=== PATIENT | male | born 1995 ===

== ENCOUNTER 2016-09-24 13:53 | Emergency (ER) | payer SELFPAY ==
[2016-09-24] MEDS ORDERED: Naproxen TAB* 250 MG PO ONE (15:28)
--- NOTE | 2016-09-24 15:28 | UC ---
Hand/Wrist HPI - HPI Summary HPI Summary: The patient comes in today for: 1. Right wrist, hand, and forearm pain: Onset: "4-5 days." Palliative/provocative: Flexion makes it worse. Gripping makes it worse. Quality: sharp with movement. Dull ache most of the time. Region: right wrist, hand and forearm. Severity: At rest: 7/10 Time: Constant. Associated symptoms: Event: No injury. Just a slow, increasing pain. Numbness: Present on the back of the hand--no particular fingers are numb-- worse with video games. Data Processing Specialist strength is reduced. PCP: None. * - History Of Current Complaint Chief Complaint: UCUpperExtremity Stated Complaint: RIGHT WRIST PAIN Time Seen by Provider: 09/24/16 15:20 Hx Obtained From: Patient, Family/Nursing Education Specialist - Allergies/Home Medications Allergies/Adverse Reactions: Allergies Allergy/AdvReac Type Severity Reaction Status Date / Time No Known Allergies Allergy Verified 09/24/16 14:05 PMH/Surg Hx/FS Hx/Imm Hx Previously Healthy: Yes - Surgical History Surgical History: None - Family History Known Family History: Positive: Hypertension, Diabetes - Social History Occupation: Employed Full-time Alcohol Use: None Substance Use Type: Marijuana Substance Use Comment - Amount & Last Used: Daily Smoking Status (MU): Smoker, Current Status Unknown - Immunization History Most Recent Influenza Vaccination: NONE Most Recent Tetanus Shot: UNK Most Recent Pneumonia Vaccination: N/A Review of Systems Constitutional: Negative Skin: Negative Eyes: Negative ENT: Negative Respiratory: Negative Cardiovascular: Negative Gastrointestinal: Negative Genitourinary: Negative Musculoskeletal: Arthralgia All Other Systems Reviewed And Are Negative: Yes Physical Exam Triage Information Reviewed: Yes Appearance: Well-Appearing, No Pain Distress, Well-Nourished Vital Signs: Initial Vital Signs Temp 97 F 09/24/16 14:05 Pulse 93 09/24/16 14:05 Resp 16 09/24/16 14:05 BP 138/86 09/24/16 14:05 Pulse Ox 98 09/24/16 14:05 Vital Signs Reviewed: Yes Eyes: Positive: Conjunctiva Clear. Negative: Discharge ENT: Positive: Hearing grossly normal. Negative: Pharyngeal erythema, Nasal congestion, Nasal drainage, TM bulging, TM dull, TM red, Tonsillar swelling, Tonsillar exudate Dental: Negative: Percussion Tenderness @, Gross Decay/Caries @, Dental Fracture @ Neck: Positive: Supple, Nontender, No Lymphadenopathy. Negative: Nuchal Rigidity Respiratory: Positive: Lungs clear, No respiratory distress, No accessory muscle use. Negative: Crackles, Wheezing Cardiovascular: Positive: RRR, No Murmur Abdomen Description: Positive: Nontender, No Organomegaly, Soft. Negative: Distended, Guarding Musculoskeletal: Positive: ROM Intact, No Edema, Other: - Bilateral arms: There is no atrophy or fasciculations. There is decreased promos executive producer strength of the right hand. There is no abnormality of the OK sign, hitchhiker's thumb or inside thumb fist testing. There is no Tinel's sign. But there is a positive Phalen's maneuver. Neurological: Positive: Alert, Muscle Tone Normal Psychological: Positive: Age Appropriate Behavior, Consolable Skin: Negative: rashes, breakdown Diagnostics - Radiology No standard instances Xray Interpretation: No Acute Changes - Hand: IMPRESSION: Normal radiographic series of the right hand, wrist and forearm. If the patient's symptoms persist , follow-up imaging is recommended. Wrist: Radiology Interpretation Completed By: Radiologist Hand/Wrist Course/Dx - Course Course Of Treatment: Patient told of my diagnosis (right carpal tunnel syndrome ) and treatment options. - Differential Dx/Diagnosis Differential Diagnosis/HQI/PQRI: Carpal Tunnel Syndrome, Sprain Provider Diagnoses: Right carpal tunnel syndrome Discharge - Discharge Plan Condition: Stable Disposition: HOME Patient Education Materials: Paresthesia (ED) Forms: *Work Release Referrals: Non Staff,Doctor [Primary Care Provider] - Aly Rosario MD [Medical Doctor] - Feli Wisdom MD [Medical Doctor] - Additional Instructions: Please contact the hand surgeons and schedule an appointment for management of your carpal tunnel syndrome. If you get worse, please be seen sooner by us, your primary care provider or the ER.
--- NOTE | 2016-09-24 16:17 | RAD ---
INDICATION: Pain from the base of the right thumb that extends proximally over the wrist and forearm x4 days without known trauma. COMPARISON: None. TECHNIQUE: 4 views of the right hand , 3 views of the right breast and 2 views of the right forearm were obtained. FINDINGS: The adequately corticated bones are in normal alignment. No significant focal osseous abnormality or fracture is seen. Joint spaces appear maintained. IMPRESSION: Normal radiographic series of the right hand, wrist and forearm. If the patient's symptoms persist, follow-up imaging is recommended.
[2016-09-24 16:40] VITALS: BP 119/61
== END 2016-09-24 16:43 | disposition home or self-care (01) ==
LOC: UCCORT 13:53
DX: G56.01 Carpal tunnel syndrome, right upper limb (principal); F12.10 Cannabis abuse, uncomplicated
CPT/HCPCS: 99202; A9270-GY; G0463

== ENCOUNTER 2016-10-14 12:05 | Emergency (ER) | payer SELFPAY ==
[2016-10-14 12:22] VITALS: BP 125/59
--- NOTE | 2016-10-14 13:18 | UC ---
Hand/Wrist HPI - HPI Summary HPI Summary: 21 yo male with a request for a back to work note his right wrist feels back to normal had work not from last month he is right handed [employer] - History Of Current Complaint Chief Complaint: UCGeneralIllness Stated Complaint: RE-CK RIGHT WRIST,RTW NOTE Time Seen by Provider: 10/14/16 12:46 Hx Obtained From: Patient Onset/Duration: Resolved Severity Initially: Moderate Severity Currently: None Pain Intensity: 0 Pain Scale Used: 0-10 Numeric Aggravating Factor(s): Other - better now Alleviating: Other - better now Associated Signs And Symptoms: Positive: Negative Related History: Dominant Hand Right - Allergies/Home Medications Allergies/Adverse Reactions: Allergies Allergy/AdvReac Type Severity Reaction Status Date / Time No Known Allergies Allergy Verified 10/14/16 12:22 Home Medications: Home Medications NK [No Home Medications Reported] 10/14/16 [History Confirmed 10/14/16] PMH/Surg Hx/FS Hx/Imm Hx Previously Healthy: Yes - Surgical History Surgical History: None - Family History Known Family History: Positive: Hypertension, Diabetes Negative: Cardiac Disease - Social History Alcohol Use: Rare Substance Use Type: Marijuana Substance Use Comment - Amount & Last Used: Daily Smoking Status (MU): Former Smoker Type: Cigarettes, Smokeless Tobacco Length of Time of Smoking/Using Tobacco: since age 10 When Did the Patient Quit Smoking/Using Tobacco: August 2016 - Immunization History Most Recent Influenza Vaccination: NONE Most Recent Tetanus Shot: UNK Most Recent Pneumonia Vaccination: N/A Review of Systems Constitutional: Negative Skin: Negative Eyes: Negative ENT: Negative Respiratory: Negative Cardiovascular: Negative Gastrointestinal: Negative Genitourinary: Negative Motor: Negative Neurovascular: Negative Musculoskeletal: Negative Neurological: Negative Psychological: Negative All Other Systems Reviewed And Are Negative: Yes Physical Exam Triage Information Reviewed: Yes Appearance: Well-Appearing, No Pain Distress, Well-Nourished Vital Signs: Initial Vital Signs Temp 97.6 F 10/14/16 12:16 Pulse 68 10/14/16 12:16 Resp 16 10/14/16 12:16 BP 125/59 10/14/16 12:16 Pulse Ox 99 10/14/16 12:16 Vital Signs Reviewed: Yes Eyes: Positive: Conjunctiva Clear ENT: Positive: Hearing grossly normal. Negative: Nasal congestion, Nasal drainage, Tonsillar exudate, Trismus, Muffled/hoarse voice Neck: Positive: Supple Respiratory: Positive: Lungs clear, Normal breath sounds, No respiratory distress, No accessory muscle use Cardiovascular: Positive: RRR, No Murmur Musculoskeletal: Positive: Strength Intact, ROM Intact, No Edema, Other: - (-) [place], (-) phalens, (-) tinnels Neurological: Positive: Alert, Muscle Tone Normal Psychological Exam: Normal Skin Exam: Normal Hand/Wrist Course/Dx - Differential Dx/Diagnosis Provider Diagnoses: normal wrist exam Discharge - Discharge Plan Condition: Stable Disposition: HOME Patient Education Materials: Normal Exam (ED) Forms: *Work Release Referrals: Non Staff,Doctor [Primary Care Provider] - Additional Instructions: your symptoms may recur when you start working again recheck if symptoms recur see specialist as planned ice twice daily wear splint as needed for comfort
== END 2016-10-14 13:25 | disposition home or self-care (01) ==
LOC: UCCORT 12:05
DX: M25.531 Pain in right wrist (principal); F12.90 Cannabis use, unspecified, uncomplicated; Z87.891 Personal history of nicotine dependence
CPT/HCPCS: 99211; G0463